=== PATIENT | male | born 1950 | race Caucasian/White ===

== ENCOUNTER 2019-02-03 18:37 | Emergency (ER) ==
[2019-02-03 18:53] VITALS: TEMP 98.4; BMI 32.4
[2019-02-03] MEDS: NORCO 5-325 PO STA (19:12)
[2019-02-03 19:38] VITALS: BP 147/91
--- NOTE | 2019-02-03 20:15 | CT ---
EXAM: CT head without contrast. HISTORY: Headache. PROCEDURE: Contiguous axial CT images of the head without contrast with coronal and sagittal reforma ts. FINDINGS: There is diffuse cerebral atrophy. The ventricles and basal cisterns are normal in size an d configuration. No evidence of mass or midline shift. No intracranial hemorrhage or evidence of la rge vessel infarct. No extra-axial fluid collection. 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 There are chronic small vessel ischemic changes in the white matter. There is muco meagan thickening in the paranasal sinuses. The mastoid air cells are normal in appearance. Impression: No intracranial hemorrhage or evidence of large vessel infarct. Chronic small vessel ischemic changes. Diffuse cerebral atrophy. Paranasal sinusitis.
--- NOTE | 2019-02-03 20:20 | CT ---
EXAM: CT chest without contrast. HISTORY: Cough. PROCEDURE: Contiguous axial CT images of the chest without contrast with coronal and sagittal reform ats. FINDINGS: The heart is within normal limits in size. The thoracic aorta is within normal limits in d iameter. There are atherosclerotic calcifications in the thoracic aorta. There are coronary artery calcifications. There are calcified mediastinal and hilar lymph nodes. There are emphysematous giron ges throughout both lungs. No infiltrate or consolidation. There are degenerative changes in the sp ine. The gallbladder is enlarged measuring 4.5 cm in diameter. Impression: Chronic obstructive pulmonary disease. Atherosclerotic vascular disease. Enlarged gallbladder as described. Consider ultrasound for further evaluation if clinically indicate d.
--- NOTE | 2019-02-03 20:21 | CT ---
Exam: CT maxillofacial without contrast Date: 02/03/2019 Comparison: None. History: Headache TECHNIQUE: Axial CT images through the paranasal sinuses. were obtained without IV contrast. Multi planar reconstructed images were obtained. FINDINGS: No acute fracture. No fluid in the middle ear cavities and mastoid air cells. There is m ild mucosal thickening seen in the right frontal sinus and the anterior bilateral ethmoid sinuses. M inimal mucosal thickening in the inferior right maxillary sinus. No air-fluid levels. Left-sided sp henoid ostia is patent. The right sphenoid ostia is narrowed. Frontal recesses are patent. Bilater al maxillary uncinectomies changes are seen. Bilateral partial ethmoidectomy changes seen. No bone destruction. No evidence of fungal elements. Impression: Mild chronic sinusitis.
--- NOTE | 2019-02-03 20:26 | ED.PDOC ---
General ED Provider: Dr. JOHAN NOVOA-ER Chief Complaint: Headache Stated Complaint: he notes having mild headache and congestion with cough Time Seen by Physician: 18:45 Mode of Arrival: Walk-In Information Source: Patient Exam Limitations: No limitations Nursing and Triage Documentation Reviewed and Agree: Yes Does patient meet sepsis criteria?: No System Inflammatory Response Syndrome: Not Applicable Sepsis Protocol: For patient's 13 years and over: Temp is 96.8 and below OR 101 and greater Pulse >90 BPM Resp >20/minute Acutely Altered Mental Status Are patient's symptoms suggestive of a new infection, such as: -Pneumonia -Skin, Soft Tissue -Endocarditis -UTI -Bone, Joint Infection -Implantable Device -Acute Abdominal Infection -Wound Infection -Meningitis -Blood Stream Catheter Infection -Unknown Respiratory Complaint Exam - Respiratory Complaint/Exam Onset/Duration: 24 hrs Symptoms Are: Still present Timing: Intermittent Initial Severity: Mild Current Severity: Mild Character: Reports: Productive cough Aggravating: Reports: URI Associated Signs and Symptoms: Reports: URI, Nasal congestion Home Oxygen Use: No Recent Stress Test: No Recent Echo/LV Function: No Current Antibiotic Use: No Current Asthma Medication Use: No Respiratory Distress: None Inadequate Respiratory Effort: No Dysphagia Present: No Stridor Present: No JVD Present: No Accessory Muscle Use: No Retractions: Not Present Diminished Breath Sounds: No Sinus Tenderness: None Grunting Respirations: No Kussmaul Respirations: No Differential Diagnoses: Pneumonia, Bronchitis Non-Traumatic Chest Pain Syncope: EKG Performed Review of Systems - Review Of Systems Constitutional: Reports: No symptoms Eyes: Reports: No symptoms Ears, Nose, Mouth, Throat: Reports: Nose discharge Respiratory: Reports: Cough. Denies: Short of air, Stridor, Wheezing Cardiac: Reports: No symptoms GI: Reports: No symptoms : Reports: No symptoms Musculoskeletal: Reports: No symptoms Skin: Reports: No symptoms Neurological: Reports: No symptoms Endocrine: Reports: No symptoms Hematologic/Lymphatic: Reports: No symptoms All Other Systems: Reviewed and Negative Past Medical History - Past Medical History Previously Healthy: Yes Endocrine: Reports: Unknown Cardiovascular: Reports: Unknown Respiratory: Reports: Unknown Hematological: Reports: Unknown Gastrointestinal: Reports: Liver Genitourinary: Reports: Unknown Neuro/Psych: Reports: Unknown Musculoskeletal: Reports: Unknown Cancer: Reports: Unknown - Surgical History General Surgical History: Reports: Unknown - Family History Family History: Reports: Unknown - Social History Smoking Status: Former smoker Hx Substance Use: No Alcohol Screening: None Physical Exam - Physical Exam Appearance: Well-appearing, No pain distress, Well-nourished Eyes: TOM, EOMI, Conjunctiva clear ENT: Rhinorrhea Neck: Supple Respiratory: Airway patent, Breath sounds clear, Breath sounds equal, Respirations nonlabored Cardiovascular: RRR, Pulses normal, No rub, No murmur GI/: Soft, Nontender, No masses, Bowel sounds normal, No Organomegaly Musculoskeletal: Normal strength, ROM intact, No edema, No calf tenderness Skin: Warm, Dry, Normal color Neurological: Sensation intact, Motor intact, Reflexes intact, Cranial nerves intact, Alert, Oriented Psychiatric: Affect appropriate, Mood appropriate Interpretation - Radiology Interpretation Radiology Interpretation By: Radiologist Radiology Results: Positive Exam Interpreted: CT Scan - EKG Interpretation Time of EKG #1: 20:27 Rate: Normal Rhythm: Sinus Ectopy: None Dewey: NL ST Segment: Normal Interpretation: nsr Critical Care Note - Critical Care Note Total Time (mins): 0 Course - Course Hematology/Chemistry: 02/03/19 19:18 02/03/19 19:18 Orders, Labs, Meds: Lab Review 02/03/19 02/03/19 19:18 19:18 WBC 9.26 RBC 5.23 Hgb 15.8 Hct 46.8 MCV 89.5 MCH 30.2 MCHC 33.8 RDW Coeff of Derek 13.5 Plt Count 260 Immature Gran % (Auto) 0.2 Neut % (Auto) 65.5 Lymph % (Auto) 20.3 Kay % (Auto) 9.6 Eos % (Auto) 3.2 Baso % (Auto) 1.2 Immature Gran # (Auto) 0.0 Neut # (Auto) 6.1 Lymph # (Auto) 1.9 Kay # (Auto) 0.9 Eos # (Auto) 0.3 Baso # (Auto) 0.1 Sodium 143.2 Potassium 3.39 L Chloride 111.9 H Carbon Dioxide 22.4 Anion Gap 12.29 BUN 18.6 Creatinine 1.04 Estimated GFR (MDRD) 71.00 BUN/Creatinine Ratio 17.88 Glucose 91.0 Calcium 9.54 Total Bilirubin 0.65 AST 53.7 ALT 49.7 Alkaline Phosphatase 208.0 H Total Creatine Kinase 160.4 CK-MB (CK-2) 1.150 CK-MB (CK-2) % 0.7100 Troponin I < 0.012 Total Protein 7.78 Albumin 4.52 Globulin 3.26 Albumin/Globulin Ratio 1.38 Orders Category Date Time Status EKG-(ED ONLY) Stat CARDIO 02/03/19 19:06 Completed ED FILTER CLOTH MAKER APPLIED .ONCE EMERGENCY 02/03/19 19:06 Active CBC W/ AUTO DIFF Stat LAB 02/03/19 19:18 Completed COMPREHENSIVE METABOLIC PANEL Stat LAB 02/03/19 19:18 Completed CREATINE KINASE Stat LAB 02/03/19 19:18 Completed TROPONIN I Stat LAB 02/03/19 19:18 Completed Hydrocodone Bit/Acetaminophen [Wesley 5-325] MEDS 02/03/19 19:07 Discontinued 1 tab PO ONCE STA CT CHEST W/O CONTRAST Stat RADS 02/03/19 19:[address] HEAD W/O CONTRAST Stat RADS 02/03/19 19:[address] SINUSES W/O CONTRAST Stat RADS 02/03/19 19:06 Completed Medications Discontinued Medications Generic Name Dose Route Start Last Admin Trade Name Lamontq PRN Reason Stop Dose Admin Hydrocodone Bitart/Acetaminophen 1 tab 02/03/19 19:07 02/03/19 19:12 Wesley 5-325 PO 02/03/19 19:08 1 tab ONCE STA Administration Vital Signs: Temp Pulse Resp BP Pulse Ox 02/03/19 19:38 68 16 147/91 H 94 L 02/03/19 18:41 98.4 F 73 20 161/92 H 94 L Departure - Departure Time of Disposition: 20:28 Disposition: HOME SELF-CARE Discharge Problem: Acute bacterial sinusitis Instructions: Sinusitis (ED) Condition: Good Pt referred to PMD for follow-up: Yes IPMP verified?: No Additional Instructions: augmentin 875mg bid 10days---f/u with pcp to dicsuss gb issues Allergies/Adverse Reactions: Allergies bacitracin [From Neosporin ([id number])] Adverse Reaction (Verified 02/03/19 18:55) neomycin [From Neosporin ([id number])] Adverse Reaction (Verified 02/03/19 18 :55) polymyxin B [From Neosporin ([id number])] Adverse Reaction (Verified 18:55) Home Medications: Ambulatory Orders 1 [Unobtainable] 02/03/19 Disposition Discussed With: Patient
== END 2019-02-03 20:35 | disposition home or self-care (01) ==
LOC: ED 18:37
DX: J01.90 Acute sinusitis, unspecified (principal); B96.89 Other specified bacterial agents as the cause of diseases classified elsewhere; R09.81 Nasal congestion; R51 Headache; R05 Cough
CPT/HCPCS: 36415; 80053; 82550; 82553; 84484; 85025; 93005; 93010; 99283